=== PATIENT | female | born 1955 | race Caucasian/White ===

== ENCOUNTER 2024-07-13 17:36 | Emergency (ER) | payer OTHER, SELFPAY ==
[2024-07-13] VITALS (22 sets, daily range): BP systolic 128–181; BP diastolic 67–95; PULSE 65–120; RESP 12–23; TEMP 36.7–37.4; O2SAT 93–100; BMI 23.6
--- NOTE | 2024-07-13 18:00 | EKG_ITS ---
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
--- NOTE | 2024-07-13 18:00 | DI.RAD.S_ITS ---
PROCEDURE: XR CHEST 1V INDICATIONS: chest pain TECHNIQUE: One view of the chest was acquired. COMPARISON: None. FINDINGS: Surgical changes and devices: None. Lungs and pleura: No dense consolidation or pleural effusion. Low lung volumes. Mediastinum: Normal heart size Bones and chest wall: Degenerative changes IMPRESSION: No acute radiographic abnormality on this limited single view study. Dictated by: Talat Ying M.D. on 07/13/2024 at 18:52 Approved by: Talat Ying M.D. on 07/13/2024 at 18:53
--- NOTE | 2024-07-13 18:05 | ED.ARRPALP ---
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 No associated shortness of breath or chest discomfort. No pain in arm, neck, jaw, shoulder blade, back. No leg pain or swelling symptoms. She has not had any change in medication, missed doses of any medications, or any new medications started. She has not felt feverish. She has not had any recent nausea or vomiting or diarrhea. No painful urination or frequency of urination. No abdominal pain. No injury trauma or new activities. No weakness to face arm or leg. Related Data Previous Rx's Medication Instructions Recorded metoprolol tartrate 25 mg tablet 25 mg PO DAILY #30 tabs 07/13/24 metoprolol tartrate 50 mg tablet 50 mg PO DAILY #30 tabs 07/13/24 Allergies Allergy/AdvReac Type Severity Reaction Status Date / Time amlodipine AdvReac Dizziness Verified 07/13/24 17:55 Review of Systems Review of Systems Narrative: see HPI Patient History Social History Smoking Status: Never smoker Smoking Status: Never smoker alcohol intake frequency: holidays/special occasions only Substance Use Type: does not use Exam Narrative Exam Narrative: GENERAL: Well-developed patient, in mild distress. HEAD: Atraumatic. Normocephalic. EYES: Pupils equal round and reactive. Extraocular motions intact. No scleral icterus. No injection or drainage. ENT: Nose without bleeding, purulent drainage. Throat without erythema, tonsillar hypertrophy or exudate. Airway patent. NECK: Trachea midline. Non tender CARDIOVASCULAR: Regular rate and rhythm without murmurs, gallops, or rubs. RESPIRATORY: Clear to auscultation. Breath sounds equal bilaterally. No wheezes, rales, or rhonchi. GASTROINTESTINAL: Abdomen soft, non-tender, nondistended. EXTREMITIES: No edema or joint tenderness. BACK: Nontender without deformity or crepitance. No flank tenderness. NEURO: AOx3. Motor functions grossly nonfocal SKIN: No rash or erythema of visible areas Initial Vital Signs Initial Vital Signs: Vital Signs Temperature 98.0 F 07/13/24 17:55 Pulse Rate 117 H 07/13/24 17:55 Respiratory Rate 17 07/13/24 17:55 Blood Pressure 150/78 H 07/13/24 17:55 Pulse Oximetry 100 07/13/24 17:55 Oxygen Delivery Method Room Air 07/13/24 17:55 Course Orders Ordered: ED Orders 07/13/24 18:00 XR chest 1V Stat EKG-12 Lead Stat 07/13/24 18:07 Complete Blood Count AUTO DIFF Stat Comprehensive Metabolic Panel Stat Lipase Stat Magnesium Stat NT-proBNP (BNP-Adult 18+) Stat PTT Partial Thromboplastin Stevo Stat Prothrombin Time INR Stat Troponin & CK Cardiac Panel Stat 07/13/24 20:25 Urinalysis and Microscopic Stat 07/13/24 20:30 Troponin I Stat Discontinued Medications Aspirin (Aspirin 81 Mg Chew Tab) 324 mg PO NOW ONE Stop: 07/13/24 18:01 Last Admin: 07/13/24 18:18 Dose: 324 mg Documented By: SB Metoprolol Succinate (Metoprolol Er 25 Mg Tablet) 25 mg PO NOW ONE Stop: 07/13/24 20:39 Last Admin: 07/13/24 20:48 Dose: 25 mg Documented By: JOVAN Metoprolol Tartrate (Metoprolol Tartrate 5 Mg/5 Ml Inj) 5 mg IV NOW ONE Stop: 07/13/24 18:12 Last Admin: 07/13/24 18:20 Dose: 5 mg Documented By: JOVAN Vital Signs Vital signs: Vital Signs - 8 hr 07/13/24 17:55 07/13/24 18:10 07/13/24 18:21 Temperature 98.0 F Pulse Rate 117 H 120 H Respiratory Rate 17 17 Blood Pressure 150/78 H 150/69 H Pulse Oximetry 100 Oxygen Delivery Method Room Air 07/13/24 18:21 07/13/24 18:29 07/13/24 18:29 Temperature Pulse Rate 120 H 112 H Respiratory Rate 21 Blood Pressure 141/82 H Pulse Oximetry 100 100 Oxygen Delivery Method 07/13/24 18:30 07/13/24 18:30 07/13/24 19:00 Temperature Pulse Rate 112 H Respiratory Rate 23 Blood Pressure 140/83 128/69 Pulse Oximetry 100 Oxygen Delivery Method Room Air 07/13/24 19:00 07/13/24 19:14 07/13/24 19:14 Temperature Pulse Rate 111 H 110 H Respiratory Rate 19 16 Blood Pressure 150/88 H Pulse Oximetry 96 100 Oxygen Delivery Method 07/13/24 19:30 07/13/24 19:30 07/13/24 19:54 Temperature 99.3 F Pulse Rate 111 H Respiratory Rate 17 Blood Pressure 146/78 H Pulse Oximetry 99 Oxygen Delivery Method Room Air 07/13/24 20:00 07/13/24 20:01 07/13/24 20:01 Temperature Pulse Rate 107 H 113 H Respiratory Rate 14 18 Blood Pressure 172/88 H Pulse Oximetry 100 98 Oxygen Delivery Method 07/13/24 20:10 07/13/24 20:37 07/13/24 20:38 Temperature 99.1 F Pulse Rate 113 H Respiratory Rate Blood Pressure 181/95 H Pulse Oximetry 93 Oxygen Delivery Method 07/13/24 20:38 07/13/24 20:48 07/13/24 21:00 Temperature Pulse Rate 109 H 66 65 Respiratory Rate 19 12 Blood Pressure 181/95 H Pulse Oximetry 100 100 Oxygen Delivery Method 07/13/24 21:01 07/13/24 21:05 07/13/24 21:05 Temperature Pulse Rate 68 71 Respiratory Rate 18 22 Blood Pressure 149/67 H Pulse Oximetry 100 100 Oxygen Delivery Method 07/13/24 21:30 07/13/24 21:31 07/13/24 21:31 Temperature Pulse Rate 68 71 Respiratory Rate 13 20 Blood Pressure 168/67 H Pulse Oximetry 99 97 Oxygen Delivery Method Room Air 07/13/24 21:37 07/13/24 22:00 07/13/24 22:00 Temperature Pulse Rate 67 69 Respiratory Rate 12 Blood Pressure 168/67 H 175/74 H Pulse Oximetry 99 Oxygen Delivery Method Room Air MDM - Arrhythmia/Palpitations Lab Data Attestation: I reviewed the patient's lab results. 07/13/24 18:07 07/13/24 18:07 Labs: Lab Results 07/13/24 07/13/24 07/13/24 Range/Units 18:07 20:25 20:30 WBC 8.4 (4.5-11.0) X10^3/uL RBC 4.14 (4.0-5.2) X10^6/uL Hgb 12.0 (12.0-16.0) g/dL Hct 36.4 (36-46) % MCV 88.0 (80-100) fL MCH 29.0 (26-34) PG MCHC 32.9 (30-36) % RDW 15.3 H (11.6-14.8) % Plt Count 316 (150-400) X10^3/uL Neut % (Auto) 72.0 (50-75) % Lymph % (Auto) 20.2 L (25-40) % [place] % (Auto) 5.3 (3-14) % Eos % (Auto) 1.8 L (2-4) % Baso % (Auto) 0.7 (0-2) % Neut # (Auto) 6100 (2220-9048) /uL Lymph # (Auto) 1700 (9301-7634) /uL [place] # (Auto) 400 (0-900) /uL Eos # (Auto) 100 (0-450) /uL Baso # (Auto) 100 (0-100) /uL PT 15.3 H (9.4-12.5) SECONDS INR 1.3 (0.9-1.3) APTT 73 H* (25.1-36.5) SECONDS Sodium 135 L (137-145) mmol/L Potassium 4.2 (3.4-5.1) mmol/L Chloride 99 (98-107) mmol/L Carbon Dioxide 28 (22-32) mmol/L BUN 18 H (7-17) mg/dL Creatinine 1.16 H (0.52-1.04) mg/dL Estimated GFR 51 L (>60) mL/min BUN/Creatinine Ratio 15.5 (6-22) Glucose 226 H (80-110) mg/dL Calcium 10.1 (8.4-10.2) mg/dL Magnesium 2.2 (1.6-2.3) mg/dL Total Bilirubin 0.6 (0.2-1.3) mg/dL AST 28 (14-36) IU/L ALT 22 (<35) IU/L Alkaline Phosphatase 129 H (38-126) U/L Total Creatine Kinase 52 (30-135) U/L Troponin I 0.022 0.030 (0.01-0.034) ng/mL NT-Pro-B Natriuret Pep 2200 H (<125) pg/mL Total Protein 8.0 (6.3-8.2) g/dL Albumin 4.4 (3.5-5.0) g/dL Globulin 3.6 (1.7-4.1) g/dL Albumin/Globulin Ratio 1.2 (1.0-2.8) Lipase 368 H (23-300) U/L Urine Color Yellow Urine Appearance Clear Urine pH 5.5 (4.5-8.0) Ur Specific [place] <=1.005 (1.000-1.035) Urine Protein Negative (Negative) Urine Glucose (UA) 3+ H (Negative) g/dL Urine Ketones Negative (NEGATIVE) Urine Occult Blood Negative (Negative) Urine Nitrate Negative (Negative) Urine Bilirubin Negative (NEGATIVE) Urine Urobilinogen 0.2 (0.2) E.U./dL Ur Leukocyte Esterase Trace H (NEGATIVE) Urine RBC 0-1/hpf (0-5/HPF) Urine WBC 0-1/hpf (0-5/HPF) Ur Squamous Epith Cells 0-1 /hpf (0-5/HPF) Ur Transition Epith Cell 0-1/hpf (0-5/HPF) Urine Bacteria Occasional (0-1) (None) Ur Culture Indicated? Cult not indicated Vol Urine Centrifuged 10ml (spun) ECG Data Attestation: I personally reviewed and interpreted this ECG as follows: Interpretation: 1808, Sinus tachycardia with rate of 120, no obvious ST segment elevation or depression changes. UT 140, QRS 92, QTC 466. 2042, normal sinus rhythm with rate of 65, no obvious ST segment elevation or depression changes. UT 186, QRS 96, QTC 428. MDM Narrative Medical decision making narrative: 69-year-old female with history atrial fibrillation on Pradaxa, prior ablation procedure, fast heart rate sensation. ekg monitor shows sinus tachycardia. Screening EKG shows sinus tachycardia without obvious ischemic changes. Labs including electrolytes pending, troponin is pending. Chest x-ray pending. Heart rate 120s, normotensive. IV metoprolol 5 mg dose. Heart rate 110 improved some. Electrolytes unremarkable. Repeat troponin also negative. P.o. metoprolol XL 25 mg dose Heart rate further improved, repeat EKG, also shows sinus rhythm, heart rate 70-90 range on monitor, normal sinus rhythm. Discharge on metoprolol XL 25 mg daily for now, follow up with Cardiology as planned. Advised to continue her Pradaxa and other chronic medications with no dose changes for now. Return precautions discussed. Discharge Plan Departure Patient Disposition: Home Clinical Impression: Palpitations, Tachycardia, History of atrial fibrillation Activity Restrictions/Additional Instructions: History of atrial fibrillation, taking Pradaxa chronic anticoagulation, palpitation fast heart rate sensation today. Stable vitals, no fever. Chest x-ray unremarkable. On monitor appears to be sinus tachycardia not atrial fibrillation or atrial flutter. EKG confirmation. Screening labs unremarkable. No evidence for heart attack, no electrolyte disorders. Increased heart rate, IV metoprolol dose initially given, some improvement in heart rate, long-acting oral metoprolol additionally given, prescription for further metoprolol to take as an outpatient. 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 Return to this/nearest emergency department for any change worsening symptoms or any concerns prior Prescriptions: New metoprolol tartrate 50 mg tablet 50 mg PO DAILY Qty: 30 0RF metoprolol tartrate 25 mg tablet 25 mg PO DAILY Qty: 30 0RF Stand Alone Forms: Patient Portal/API
[2024-07-13] MEDS: ASPIRIN 81 MG CHEW TAB 324 MG PO (18:18)
[2024-07-13] MEDS: METOPROLOL TARTRATE 5 MG/5 ML INJ IV (18:20)
[2024-07-13 18:30] LABS: Add Manual Diff / Slide Review NO; Basophils Absolute Auto 100 /uL (0-100); Basophils Percent Auto 0.7 % (0-2); Eosinophils Absolute Auto 100 /uL (0-450); Eosinophils Percent Auto 1.8 % (2-4); Hematocrit 36.4 % (36-46); Lymphocytes Absolute Auto 1700 /uL (1100-4500); Lymphocytes Percent Auto 20.2 % (25-40); Mean Corpuscular HGB Conc 32.9 % (30-36); Monocytes Absolute Auto 400 /uL (0-900); Monocytes Percent Auto 5.3 % (3-14); Neutrophils Absolute Auto 6100 /uL (1500-7000); Platelet Count 316 X10^3/uL (150-400); Red Blood Cell Count 4.14 X10^6/uL (4.0-5.2); Red Cell Distribution Width 15.3 % (11.6-14.8); White Blood Cell Count 8.4 X10^3/uL (4.5-11.0)
[2024-07-13 18:53] LABS: Alanine Aminotransferase 22 IU/L (<35); Albumin 4.4 g/dL (3.5-5.0); Albumin Globulin Ratio 1.2 (1.0-2.8); Alkaline Phosphatase 129 U/L (38-126); Aspartate Aminotransferase 28 IU/L (14-36); BUN Creatinine Ratio 15.5 (6-22); Bilirubin Total 0.6 mg/dL (0.2-1.3); Blood Urea Nitrogen 18 mg/dL (7-17); Calcium 10.1 mg/dL (8.4-10.2); Carbon Dioxide 28 mmol/L (22-32); Chloride 99 mmol/L (98-107); Creatine Kinase 52 U/L (30-135); Estimated Glomerular Filt Rate 51 mL/min (>60); Globulin 3.6 g/dL (1.7-4.1); Glucose 226 mg/dL (80-110); HEMOLYSIS < 15 (0-50); Lipase 368 U/L (23-300); Magnesium 2.2 mg/dL (1.6-2.3); Potassium 4.2 mmol/L (3.4-5.1); Sodium 135 mmol/L (137-145)
[2024-07-13 19:05] LABS: NT-proBNP (BNP-Adult 18+) 2200 pg/mL (<125); Troponin I 0.022 ng/mL (0.01-0.034)
[2024-07-13 19:24] LABS: INR 1.3 (0.9-1.3); Prothrombin Time 15.3 SECONDS (9.4-12.5)
[2024-07-13 19:32] LABS: PTT Partial Thromboplastin Tim 73 SECONDS (25.1-36.5)
[2024-07-13 20:39] LABS: Appearance Urine UA CLEAR; Bilirubin Urine UA NEGATIVE (NEGATIVE); Color Urine UA YELLOW; Glucose Urine UA 3+ g/dL (Negative); Ketones Urine UA NEGATIVE (NEGATIVE); Leukocyte Esterase Urine UA TRACE (NEGATIVE); Nitrite Urine UA NEGATIVE (Negative); Occult Blood Urine UA NEGATIVE (Negative); Protein Urine UA NEGATIVE (Negative); Specific Gravity Urine UA <=1.005 (1.000-1.035); Urobilinogen Urine UA 0.2 E.U./dL (0.2)
[2024-07-13 20:40] LABS: pH Urine UA 5.5 (4.5-8.0)
[2024-07-13] MEDS: METOPROLOL ER 25 MG TABLET PO (20:48)
[2024-07-13 20:54] LABS: RBC Urine 0-1/HPF (0-5/HPF); Urine Volume 10mL (spun); WBC Urine 0-1/HPF (0-5/HPF)
[2024-07-13 20:55] LABS: Bacteria Urine Occasional (0-1); Culture Indicated Urine Cult Not Indicated; Squamous Epithelial Cell Urine 0-1 /HPF (0-5/HPF); Transitional Epi Cells Urine 0-1/HPF (0-5/HPF)
--- NOTE | 2024-07-14 12:03 | EKG_ITS ---
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
== END 2024-07-13 22:14 | disposition home or self-care (01) ==
PROVIDERS: Emergency Provider Emergency Medicine
DX: R00.0 Tachycardia, unspecified (principal); R00.2 Palpitations; I48.91 Unspecified atrial fibrillation; Z79.01 Long term (current) use of anticoagulants
CPT/HCPCS: 36415; 71045; 80053; 81001; 82550; 83690; 83735; 83880; 84484; 85025; 85610; 85730; 93005; 93010; 96374; 99284